=== PATIENT | female | born 1960 | race Caucasian/White ===

== ENCOUNTER 2017-01-13 10:43 | Emergency (ER) | payer SELFPAY ==
[~2017-01-13] VITALS: Ht 165.1 cm; Wt 62.0 kg
[~2017-01-13 10:43] MED LIST: ADDE30CA PO; CYCL-36 PO; IBUP-232 PO; LEVO.1
[2017-01-13 10:44] VITALS: BP 151/73; PULSE 132; RESP 20; TEMP 97.8; O2SAT 98
[2017-01-13 10:50] VITALS: PULSE 118
[2017-01-13] MEDS ORDERED: LEVO75TA3 PO (12:01)
[2017-01-13] MEDS ORDERED: SODIUM CHLOR 0.9% 1000 ML INJ 1,000 ML IV SCH (12:11)
[2017-01-13] MEDS ORDERED: ONDANSETRON HCL 4 MG/2 ML VIAL IVP ONE (12:15)
[2017-01-13] MEDS ORDERED: FAMOTIDINE 20 MG/2 ML VIAL IV PUSH ONE (12:15)
[2017-01-13] MEDS ORDERED: ALUMINUM/MAGNESIUM/SIMETH 30 ML CUP PO ONE (12:15)
[2017-01-13] MEDS ORDERED: LIDOCAINE VISCOUS 2% SOLN 15 ML UDC PO ONE (12:15)
[2017-01-13] MEDS ORDERED: SODIUM CHLORIDE 0.9% FLUSH 10 ML FLUSH IV FLUSH PRN (12:15)
[2017-01-13 12:17] VITALS: O2SAT 100
[2017-01-13 12:30] VITALS: BP 114/78; PULSE 91; RESP 17; O2SAT 100
[2017-01-13 12:49] LABS: BASOPHIL % 0.2 % (0.0-2.0); EOSINOPHIL # 0.1 TH/MM3 (0-0.4); EOSINOPHIL % 1.7 % (0.0-4.0); HEMATOCRIT 31.5 % (35.0-46.0); HEMO FLAGS DIFF FINAL; LYMPH % 18.9 % (9.0-44.0); LYMPHOCYTE # 1.3 TH/MM3 (1.0-4.8); MEAN CORPUSCULAR HEMOGLOBIN 30.4 PG (27.0-34.0); MEAN CORPUSCULAR HGB CONC 34.1 % (32.0-36.0); NEUT % 70.2 % (16.0-70.0); PLATELET COUNT 223 TH/MM3 (150-450); RED BLOOD COUNT 3.54 MIL/MM3 (4.00-5.30); RED CELL DISTRIBUTION WIDTH 12.4 % (11.6-17.2); WHITE BLOOD COUNT 7.1 TH/MM3 (4.0-11.0)
[2017-01-13 12:55] LABS: BLOOD, URINE NEG (NEG); COMMENT (UR) CULT NOT INDICATED; CULTURE IF INDICATED CULT NOT INDICATED; GLUCOSE,URINE NEG (NEG); KETONE, URINE NEG (NEG); MUCUS URINE FEW /lpf (OCC); NITRITE,URINE NEG (NEG); PH, URINE 5.5 (5.0-8.5); URINE COLOR YELLOW (YELLW/STRAW)
[2017-01-13 13:13] LABS: BICARBONATE 27.4 MEQ/L (21.0-32.0); POTASSIUM 3.8 MEQ/L (3.5-5.1)
[2017-01-13 13:14] LABS: INDIRECT BILIRUBIN 0.2 MG/DL (0.0-0.8); TOTAL BILIRUBIN ADULT 0.3 MG/DL (0.2-1.0)
[2017-01-13 13:59] LABS: APTT (PATIENT) 23.1 SEC (24.3-30.1); PROTHROMBIN TIME - PATIENT 10.6 SEC (9.8-11.6)
[2017-01-13] MEDS ORDERED: IOHEXOL 350 MG/ML 10 ML VIAL (for RAD DIAG) IV ONE (15:12)
--- NOTE | 2017-01-13 15:26 | RADRPT ---
EXAM DATE/TIME: 01/13/2017 14:56 [place] COMPARISON: No previous studies available for comparison. INDICATIONS : Abominal pain and nausea for one week IV CONTRAST: 87 cc Omnipaque 350 (iohexol) IV ORAL CONTRAST: No oral contrast ingested. RADIATION DOSE: 5.28 CTDIvol (mGy) MEDICAL HISTORY : None SURGICAL HISTORY : Tubal ligation. ENCOUNTER: Initial ACUITY: 1 week PAIN SCALE: 3/10 LOCATION: Bilateral medial abdomen TECHNIQUE: Volumetric scanning of the abdomen and pelvis was performed. Using automated exposure control and ad justment of the mA and/or kV according to patient size, radiation dose was kept as low as reasonably achievable to obtain optimal diagnostic quality images. FINDINGS: LOWER LUNGS: The visualized lower lungs are clear. LIVER: Homogeneous density without lesion. There is no dilation of the biliary tree. No calcified gallston es. SPLEEN: Normal size without lesion. PANCREAS: Within normal limits. KIDNEYS: Normal in size and shape. There is no mass, stone or hydronephrosis. ADRENAL GLANDS: Within normal limits. VASCULAR: There is no aortic aneurysm. BOWEL/MESENTERY: There is focal wall thickening and pericolic inflammatory changes involving the proximal transverse c olon consistent with probable acute diverticulitis. No pericolic abscess is noted. ABDOMINAL WALL: Within normal limits. RETROPERITONEUM: There is no lymphadenopathy. BLADDER: No wall thickening or mass. REPRODUCTIVE: The uterus is mildly prominent and contains multiple small calcified fibroids. INGUINAL: There is no lymphadenopathy or hernia. MUSCULOSKELETAL: Mild degenerative changes and scoliosis of the lumbar spine are noted. CONCLUSION: 1. Focal wall thickening and pericolic inflammatory changes involving the proximal transverse colon c onsistent with probable acute diverticulitis. No pericolic abscess is noted. 2. Fibroid uterus. 3. Mild degenerative changes and scoliosis of the lumbar spine. Lan Briggs MD on January 13, 2017 at 15:21 Board Certified Radiologist. This report was verified electronically.
[2017-01-13] MEDS ORDERED: traMADol HCL 50 MG TAB PO ONE (16:00)
[2017-01-13] MEDS ORDERED: CIPR-9 PO (16:07)
[2017-01-13] MEDS ORDERED: METR-1 PO (16:07)
--- NOTE | 2017-01-13 16:07 | PD ---
HPI Chief Complaint: Abdominal Pain Time Seen by Provider: 12:03 Travel History International Travel<30 days: No Contact w/Intl Traveler<30days: No Traveled to known affect area: No History of Present Illness HPI Patient is a 56-year-old female comes in complaining of abdominal pain. She says the pain is in the middle of her abdomen. She says that this started a week ago. She was looking on the Internet, and was concerned she might have appendicitis, so she came in. She said some nausea, no vomiting. She does report constipation recently, which she took laxatives for and this has improved. She denies fever or chills. She denies any dysuria or vaginal discharge. [facility] Past Medical History ADD: Yes Diminished Hearing: No Immunizations Current: Yes Thyroid Disease: Yes Tetanus Vaccination: > 5 Years Influenza Vaccination: No ?: Not Menopausal: Yes Tubal Ligation: Yes Past Surgical History Eye Surgery: Yes (left eye) Social History Alcohol Use: Yes (3-4x weeks) Tobacco Use: No Substance Use: No Allergies-Medications (Allergen,Severity, Reaction): Coded Allergies: Latex (Verified Allergy, Severe, Rash, 11/18/14) Reported Meds & Prescriptions Reported Meds & Active Scripts Active Reported Levothyroxine (Levothyroxine Sodium) 75 Mcg Tab 75 Mcg PO DAILY Review of Systems Except as stated in HPI: all other systems reviewed are Neg General / Constitutional: No: Fever, Chills HENT: No: Headaches, Lightheadedness Cardiovascular: No: Chest Pain or Discomfort Respiratory: No: Shortness of Breath Gastrointestinal: Positive: Nausea, Abdominal Pain, Constipation, No: Vomiting Genitourinary: No: Urgency, Dysuria Skin: No Rash, No Change in Pigmentation Neurologic: No: Weakness, Dizziness Physical Exam Narrative GENERAL: Awake and alert, in no acute distress. SKIN: Focused skin assessment warm/dry. HEAD: Atraumatic. Normocephalic. EYES: Pupils equal and round. No scleral icterus. ENT: No nasal bleeding or discharge. NECK: Trachea midline. No JVD. CARDIOVASCULAR: Regular rate and rhythm. No murmur appreciated. RESPIRATORY: No accessory muscle use. Clear to auscultation. Breath sounds equal bilaterally. GASTROINTESTINAL: Abdomen soft, nondistended. Tender to palpation of the center of the abdomen. No rebound or guarding. MUSCULOSKELETAL: No obvious deformities. No clubbing. No cyanosis. No edema. NEUROLOGICAL: Awake and alert. No obvious cranial nerve deficits. Motor grossly within normal limits. Normal speech. PSYCHIATRIC: Appropriate mood and affect; insight and judgment normal. Data Data Last Documented VS Vital Signs Date Time Temp Pulse Resp B/P Pulse Ox O2 Delivery O2 Flow Rate FiO2 01/13/17 12:30 91 17 114/78 100 Room Air 01/13/17 10:44 97.8 Orders Basic Metabolic Panel (Bmp) (01/13/17 12:11) Complete Blood Count With Diff (01/13/17 12:11) Lipase (01/13/17 12:11) Prothrombin Time / Inr (Pt) (01/13/17 12:11) Act Partial Throm Time (Ptt) (01/13/17 12:11) Urinalysis - C+S If Indicated (01/13/17 12:11) Ua Includes Microscopic (01/13/17 12:11) Ct Abd/Pel W Iv Contrast(Rout) (01/13/17 12:11) Iv Access Insert/Monitor (01/13/17 12:11) Ecg Monitoring (01/13/17 12:11) Oximetry (01/13/17 12:11) Ondansetron Inj (Zofran Inj) (01/13/17 12:15) Sodium Chlor 0.9% 1000 Ml Inj (Ns 1000 M (01/13/17 12:11) Sodium Chloride 0.9% Flush (Ns Flush) (01/13/17 12:15) Electrocardiogram (01/13/17 12:11) Famotidine Inj (Pepcid Inj) (01/13/17 12:15) Al-Mag Hy-Si 40-40-4 Mg/Ml Liq (Mag-Al P (01/13/17 12:15) Lidocaine 2% Viscous (Xylocaine 2% Visco (01/13/17 12:15) Hepatic Functional Panel (01/13/17 12:11) Iohexol 350 Inj (Omnipaque 350 Inj) (01/13/17 15:12) Tramadol (Ultram) (01/13/17 16:00) Labs Laboratory Tests Test 01/13/17 01/13/17 12:31 13:17 White Blood Count 7.1 TH/MM3 Red Blood Count 3.54 MIL/MM3 Hemoglobin 10.7 GM/DL Hematocrit 31.5 % Mean Corpuscular Volume 89.0 FL Mean Corpuscular Hemoglobin 30.4 PG Mean Corpuscular Hemoglobin 34.1 % Concent Red Cell Distribution Width 12.4 % Platelet Count 223 TH/MM3 Mean Platelet Volume 11.1 FL Neutrophils (%) (Auto) 70.2 % Lymphocytes (%) (Auto) 18.9 % Monocytes (%) (Auto) 9.0 % Eosinophils (%) (Auto) 1.7 % Basophils (%) (Auto) 0.2 % Neutrophils # (Auto) 5.0 TH/MM3 Lymphocytes # (Auto) 1.3 TH/MM3 Monocytes # (Auto) 0.6 TH/MM3 Eosinophils # (Auto) 0.1 TH/MM3 Basophils # (Auto) 0.0 TH/MM3 CBC Comment DIFF FINAL Differential Comment Urine Color YELLOW Urine Turbidity CLEAR Urine pH 5.5 Urine Specific [place] 1.014 Urine Protein NEG mg/dL Urine Glucose (UA) NEG mg/dL Urine Ketones NEG mg/dL Urine Occult Blood NEG Urine Nitrite NEG Urine Bilirubin NEG Urine Urobilinogen LESS THAN 2.0 MG/DL Urine Leukocyte Esterase NEG Urine RBC LESS THAN 1 /hpf Urine WBC 1 /hpf Urine Mucus FEW /lpf Microscopic Urinalysis Comment CULT NOT INDICATED Sodium Level 141 MEQ/L Potassium Level 3.8 MEQ/L Chloride Level 106 MEQ/L Carbon Dioxide Level 27.4 MEQ/L Anion Gap 8 MEQ/L Blood Urea Nitrogen 21 MG/DL Creatinine 0.45 MG/DL Estimat Glomerular Filtration 144 ML/MIN Rate Random Glucose 103 MG/DL Calcium Level 10.0 MG/DL Total Bilirubin 0.3 MG/DL Direct Bilirubin 0.1 MG/DL Indirect Bilirubin 0.2 MG/DL Aspartate Amino Transf 24 U/L (AST/SGOT) Alanine Aminotransferase 41 U/L (ALT/SGPT) Alkaline Phosphatase 53 U/L Total Protein 7.0 GM/DL Albumin 2.9 GM/DL Lipase 185 U/L Prothrombin Time 10.6 SEC Prothromb Time International 1.0 RATIO Ratio Activated Partial 23.1 SEC Thromboplast Time MDM Medical Decision Making Medical Screen Exam Complete: Yes Emergency Medical Condition: Yes Differential Diagnosis Appendicitis versus colitis versus diverticulitis versus pancreatitis versus cholecystitis Narrative Course Patient is a 56-year-old female comes in complaining of abdominal pain. Exam shows tenderness to the middle of the abdomen. IV established, labs sent. Labs show no acute abnormalities. Patient given GI cocktail without relief of her symptoms. CT abdomen and pelvis performed shows diverticulitis without complication. She is given tramadol for pain. She'll be discharged with prescriptions for Cipro and Flagyl. She is advised to avoid alcohol while taking the Flagyl. Given a prescription for tramadol to take for pain. Advised follow-up with a primary care doctor. Advised to return to the emergency department as needed for any worsening symptoms. Last 24 hours Impressions Abdomen/Pelvis CT 01/13/17 1211 Signed Impressions: Service Date/Time: Wednesday, January 13, 2017 14:56 - CONCLUSION: 1. Focal wall thickening and pericolic inflammatory changes involving the proximal transverse colon consistent with probable acute diverticulitis. No pericolic abscess is noted. 2. Fibroid uterus. 3. Mild degenerative changes and scoliosis of the lumbar spine. Lan Briggs MD Diagnosis Primary Impression: Diverticulitis Qualified Code: K57.32 - Diverticulitis of large intestine without perforation or abscess without bleeding Patient Instructions: Diverticulitis (ED), General Instructions Additional Instructions: Take all of her antibiotics. Make sure he did not drink alcohol while on these antibiotics as usual become violently ill. Drink plenty of fluids. Take pain medication as needed. Follow-up with a primary care doctor. Return to the emergency department as needed for any worsening symptoms. Scripts Metronidazole (Flagyl)500 Mg [id number] Mg PO TID 7 Days Ref 0 Prov:Mireya Franz MD 01/13/17 Ciprofloxacin (Cipro)500 Mg [id number] Mg PO BID 7 Days Ref 0 Prov:Mireya Franz MD 01/13/17 Disposition: 01 DISCHARGE HOME Condition: Stable Mireya Franz MD Jan 13, 2017 16:07
--- NOTE | 2017-01-14 14:58 | EKG ---
Date Performed: 01/13/2017 Time Performed: 12:32:52 PTAGE: 56 years EKG: Sinus rhythm NORMAL ECG NO PREVIOUS TRACING DOCTOR: Elliot Stover Interpretating Date/Time 01/14/2017 14:56:22
== END 2017-01-13 16:21 | disposition home or self-care (01) ==
LOC: NEPD 10:43
DX: K57.32 Diverticulitis of large intestine without perforation or abscess without bleeding (principal)
CPT/HCPCS: 74177; 80048; 80076; 81001; 83690; 85025; 85610; 85730; 93005; 96361; 96374; 96375; 99285; J2405; J7030; Q9967